=== PATIENT | female | born 1970 | race Caucasian/White ===

== ENCOUNTER 2016-09-25 14:19 | Observation (INO) | payer OTHER ==
--- NOTE | 2016-09-25 14:32 | ERNOTE ---
Abdominal HPI - Narrative Date of Service: 09/25/16 - General Chief Complaint: Abdominal Pain Time Seen by Provider: 09/25/16 14:25 Source: patient Exam Limitations: no limitations - Immun/Allergies/Home Medications Immunizatons: IMMUNIZATION HX Immunizations Up to Date Yes History of Influenza Vaccine Yes Allergies/Adverse Reactions: Allergies camphor [From Biofreeze] Allergy (Verified 09/25/16 14:26) menthol Allergy (Verified 09/25/16 14:26) methyl salicylate [From Icy Hot] Allergy (Verified 09/25/16 14:26) vtids Allergy (Uncoded 09/25/16 14:26) - History of Present Illness Narrative: Pt. comes in as transfer from [facility] with RLQ pain that started this morning. Pt. denies any SOB, CP, but does state taht her pain is accompanied by nausea vomiting and diarrhea since this morning. Pt. has hx of surgery in the past but not her appendix. Pt. has a hx of seizures and denies any problem with anesthesia. Dr Ball and Yan were consulted by [facility] prior to pt. transfer. Review of Systems - Review of Systems Constitutional: Present: no symptoms reported. Absent: recent illness, fever, chills, malaise EYE: Present: no symptoms reported ENT: Present: no symptoms reported Respiratory: Absent: shortness of breath, cough, wheezing Cardiology: Present: no symptoms reported. Absent: chest pain, palpitations, edema Gastrointestinal/Abdominal: Present: nausea, vomiting, diarrhea, abdominal pain Genitourinary: Present: no symptoms reported. Absent: frequency, decreased urinary output Musculoskeletal: Present: no symptoms reported. Absent: back pain, joint pain Skin: Present: no symptoms reported. Absent: rash Neurological: Present: no symptoms reported. Absent: headache, dizziness/light- headedness, numbness, tingling Endocrine: Present: no symptoms reported All Other Systems: All systems neg except as marked - Patient's Past Medical History Patient History - Medical: No pertinent hx - Social History Smoking Status: Never smoker Have you smoked in the past 12 months: No - Immunizations Immunizations Up to Date: Yes History of Influenza Vaccine: Yes Physical Exam - Physical Exam General Appearance: Present: wd/wn, alert, no apparent distress Eye Exam: Normal inspection: bilateral, PERRL: bilateral, EOMI: bilateral Ears, Nose, Throat: Present: normal ENT inspection, normal pharynx Neck: Present: normal inspection, nontender. Absent: lymphadenopathy (R), lymphadenopathy (L) Respiratory: Present: no respiratory distress, normal breath sounds, no accessory muscle use, chest nontender, lungs clear Cardiovascular/Chest: Present: regular rate, rhythm, no murmur, normal peripheral pulses Gastrointestinal/Abdominal: Present: normal bowel sounds, nondistended, soft, tenderness, rebound, McBurney sign, Obturator sign. Absent: Pelaez sign, Psoas sign Extremity Exam: Present: normal inspection, non-tender, no edema, decreased range of motion - R hip active Neurological Exam: Present: alert, oriented, normal mood/affect, no motor/ sensory deficits Skin Exam: Present: normal color, warm/dry. Absent: pallor, skin rash Lymphatic Exam: Present: inguinal node (R) ED Progress - Date and Time Seen: Date and Time: 09/25/16 14:39 Dr Ball in the ER to see the pt. and the OR crew called in for appendectomy at this time. - Results and Orders Patient's Lab Results:: I have reviewed the patient's lab results. Results and Orders: Reveiwed from [facility] mild elevated WBC with bandemia - Vital Signs Patient's Vital Signs:: I have reviewed the patient's vital signs. Vital Signs: Vital Signs 09/25/16 14:20 Temperature 37.1 C Pulse Rate 88 Respiratory 12 Rate Blood Pressure 128/64 O2 Sat by Pulse 96 Oximetry - CT/Ultrasound CT/Ultrasound Narrative: Reveiwed CT scan report from [facility] appendicitis - Progress/Reassessment Chief Complaint: Abdominal Pain Departure - Departure Clinical Impression: Acute appendicitis Qualifiers: Acute appendicitis type: unspecified acute appendicitis type Qualified Code(s) : K35.80 - Unspecified acute appendicitis Disposition: [facility] Condition: Fair Referrals: Yrn Higuera MD [Primary Care Provider] -
--- OUTSIDE RECORDS SUMMARY | 2016-09-25 14:36 | XMS REPORT | Continuity of Care Document ---
:1970 Author Organization [facility] ([facility]) Address [address] [place] [address] Phone [phone] Care Team Providers Name Role Phone Unavailable Primary Care Provider Unavailable Source Comments This disclosure is being made pursuant to the Care Everywhere program, applicable federal and state laws, and may not contain all informaitonavailable regarding this patient.[facility] ([facility]) Active Allergies and Adverse Reactions Not on File Current Medications Not on file Active Problems Not on file Social History Tobacco Use Types Packs/Day Years Used Date Never Assessed Plan of Care Health Maintenance Due Date Last Done Comments Hepatitis B Vaccine (1 of 3 - Primary Series) 1970 Tdap Vaccine 10/29/1979 Lipid Disorder Screening 1986 MMR Vaccine 1986 Td Vaccine 1986 Cervical Cancer Screening 1998 Mammogram 2008 Influenza Vaccine: Seasonal (#1) 02/15/2016 Results from Last 3 Months Not on file
[2016-09-25] MEDS ORDERED: HYDROmorphone HCL 1 MG/ML DISP.SYRIN IV ONE (14:38)
[2016-09-25] MEDS ORDERED: HYDROmorphone HCL 1 MG/ML DISP.SYRIN ONE (14:42)
--- NOTE | 2016-09-25 15:15 | HP ---
Chief Complaint - Chief Complaint Date of Service: 09/25/16 Time of Service: 14:45 Chief Complaint: Abdominal pain, Appendicitis History of Present Illness: 45 y/o female awoke this am with rt sided abdominal pain followed by nausea. Pain has progressed through the day. No change in bowel habits although she has not had a BM in 2 days. No prior hx of similar pain. - Narrative Narrative: Patient has a several yr hx of trigeminal neuralgia for which she takes meds. Hx of hysterectomy several yrs ago. Hx of fairly severe heartburn with spicy food intake. - Patient's Past Medical History Patient History - Medical: No pertinent hx Patient History - Cardiac/Respiratory: No pertinent hx Patient History - Cancer: No Hx of Cancer Patient History - Surgical Procedures: , Hysterectomy Patient History - Other: None - Social History Living Situations: spouse Abuse History: No History of abuse Psych History: Hx of Anxiety Smoking Status: Never smoker Have you smoked in the past 12 months: No - Immunizations Immunizations Up to Date: Yes History of Influenza Vaccine: Yes Review Of Systems (GEN) - Review of Systems EENTM: Present: Other - Long hx of trigeminal neuralgia. Respiratory: Present: No Symptoms Reported Cardiac: Present: No Symptoms Reported Abdominal: Present: Other - see hpi Genitourinary: Present: No Symptoms Reported Musculoskeletal: Present: No Symptoms Reported Neurological: Present: No Symptoms Reported Skin: Present: No Symptoms Reported Endocrine: Present: No Symptoms Reported Immunizations: IMMUNIZATION HX Immunizations Up to Date Yes History of Influenza Vaccine Yes Allergies/Adverse Reactions: Allergies Allergy/AdvReac Type Severity Reaction Status Date / Time camphor [From Biofreeze] Allergy Verified 09/25/16 14:26 menthol Allergy Verified 09/25/16 14:26 methyl salicylate Allergy Verified 09/25/16 14:26 [From [employer] Hot] vtids Allergy Uncoded 09/25/16 14:26 Exam - Exam Vital Signs: Vital Signs - Last Taken Temp 37.1 C 09/25/16 14:20 Pulse 86 09/25/16 14:26 Resp 14 09/25/16 14:26 BP 128/64 09/25/16 14:26 Pulse Ox 96 09/25/16 14:26 Comprehensive Narrative: 09/25/16 15:04 Pleasant female, alert and cooperative. Lungs clear. Heart regular with rate of 96. No murmurs or gallops. Abdomen quiet to auscultation. Tender in RLQ with gaurding and referred rebound. No masses or organomegally. Constitutional: Present: Alert, Oriented x3, Cooperative, Moderate distress, Middle aged, Overweight ENT Exam: Present: hearing grossly normal Neck: Present: non-tender Back Exam: Present: normal inspection Breasts: Present: Exam deferred Respiratory: Present: lungs clear, normal breath sounds, no respiratory distress , No rales, No wheezing Peripheral Pulses: radial (R): 0, radial (L): 0 Abdomen: Present: nondistended, tender, guarding, rebound tenderness /Rectal: Present: Exam deferred Extremity: Present: normal range of motion, normal inspection, no calf tenderness Skin Exam: Present: normal color Lymphatic: Present: no adenopathy Neurologic: Present: no motor/sensory deficits Appearance: Present: appropriate appearance Eye contact: Present: cooperative, good eye contact, normal speech Thoughts: Present: normal thought pattern Diagnostic Studies: WBC 12,500. Chemistries and u/a nl. Blood sugar minimally elevated. CT of abdomen shows acute appendicitis. Assessment/Plan - Narrative Narrative: Patient presents with classic hx and lab and physical exam for appendicitis. CT confirms appendicitis. Plan for appendectomy. I have discussed plan with the patient including the plan for lap appendectomy with the 10 to 15% chance of conversion to open technique. She is aware of risks of bleeding, infection and bowel injury because of prior surgery. She consents to the surgery. Her was in attendance also. - Assessment/Plan (1) Acute appendicitis Problem: Acute Qualifiers: Acute appendicitis type: with localized peritonitis Qualified Code(s): K35.3 - Acute appendicitis with localized peritonitis
[2016-09-25] MEDS ORDERED: CEFOXITIN SODIUM 1 GM in DEXTROSE 5 % IN WATER 100 ML IV ONE ×2 (15:30)
[2016-09-25] MEDS ORDERED: RINGERS SOLUTION,LACTATED 1,000 ML IV ONE (15:45)
--- OUTSIDE RECORDS SUMMARY | 2016-09-25 17:02 | XMS REPORT | Continuity of Care Document ---
:1970 Author Organization [facility] ([facility]) Address [address] [place] [address] Phone [phone] Care Team Providers Name Role Phone Unavailable Primary Care Provider Unavailable Source Comments This disclosure is being made pursuant to the Care Everywhere program, applicable federal and state laws, and may not contain all informaitonavailable regarding this patient.[facility] ([facility]) Active Allergies and Adverse Reactions Not on [...]
[2016-09-25] MEDS ORDERED: NALOXONE HCL 0.4 MG/ML VIAL IV PRN (17:13)
[2016-09-25] MEDS ORDERED: HYDROmorphone HCL 2 MG/ML VIAL IV PRN (17:13)
[2016-09-25] MEDS ORDERED: PROMETHAZINE HCL 12.5 MG in DEXTROSE 5 % IN WATER 50 ML IV PRN ×2 (17:13)
[2016-09-25] MEDS ORDERED: diphenhydrAMINE HCL 50 MG/ML VIAL IV PRN (17:13)
--- NOTE | 2016-09-25 17:35 | OR ---
Operative Report - Dictated Report Narrative: Pre op dx - Acute appendicitis Post op dx - Acute appendicitis and multiple adhesions Operation - Laparoscopic Appendectomy Lysis of adhesions EBL - 15cc Narrative - After induction of general endotracheal anaesthesia Patient was prepped and draped with betadine prep. Timeout was held. A supraumbilical transverse incision was made sand carried down to fascia. The linea alba was elevated between two stay sutures and opened. The peritoneum was grasped and opened. There were multiple adhesions to the peritoneum and these were teased off the peritoneum so a hole was created into free peritonel space. A blunt 12 mm port was placed and the abdomen was insufflated with CO2. A five mm port was placed in the RUQ and the suprapubic area under direct vision. Adhesions were then taken down from the rt lateral lower abdomen and the grosswly inflamed appendix was elevated with a jayson.A window was made along the base of the appendix through the mesoappendix. Using the JO endostapler, the mesoappendix was stapled. This was found to be hemostatic. The endostapler was reintroduced and the base of the appendix was stapled. This was found to be hemostatic. The appendix was placed in an endobag and removed through the umbilical port site. The abdomen was irrigated with copious amts of saline. The ports were removed under direct vision with no bleeding identified.The fascia was closed with O PDS suture and one O silk suture. The skin was closed with subcuticular 4-O vicryl. The patient was stable throughout the operat ion and returned to the recovery room in satisfactory condition. Loi Ball M.D.
[2016-09-25] MEDS ORDERED: RINGERS SOLUTION,LACTATED 1,000 ML IV PRN (17:54)
[2016-09-25] MEDS ORDERED: MORPHINE SULFATE 2 MG/ML DISP.SYRIN IV PRN (18:05)
[2016-09-25] MEDS ORDERED: ONDANSETRON HCL/PF 2 MG/ML VIAL IV PRN (18:07)
[2016-09-25] MEDS ORDERED: NORMAL SALINE 1,000 ML IV PRN (18:08)
[2016-09-25] MEDS ORDERED: carBAMazepine 200 MG TABLET ONE (18:36)
[2016-09-25] MEDS: carBAMazepine 200 MG TABLET PO SCH ×2 (18:39→20:10)
[2016-09-25] MEDS: HYDROcodone/ACETAMINOPHEN 1 EACH TABLET PO PRN (19:08)
[2016-09-25] MEDS: NYSTATIN 15 APPL BTL TP SCH (20:37)
[2016-09-25] MEDS: KETOROLAC TROMETHAMINE 30 MG/ML VIAL IV PRN (20:38)
[2016-09-25] MEDS: GABAPENTIN 300 MG CAPSULE PO SCH (20:38)
[2016-09-25] MEDS ORDERED: lamoTRIgine 100 MG TABLET ONE (21:18)
[2016-09-25] MEDS: clonazePAM 1 MG TABLET PO SCH (21:19)
[2016-09-25] MEDS: lamoTRIgine 100 MG TABLET PO SCH (21:19)
[2016-09-26] MEDS: HYDROcodone/ACETAMINOPHEN 1 EACH TABLET PO PRN ×2 (03:00→08:21)
[2016-09-26] MEDS: KETOROLAC TROMETHAMINE 30 MG/ML VIAL IV PRN ×2 (03:29→12:01)
[2016-09-26] MEDS: GABAPENTIN 300 MG CAPSULE PO SCH ×3 (04:17→14:10)
[2016-09-26] MEDS: NYSTATIN 15 APPL BTL TP SCH (08:20)
[2016-09-26] MEDS: clonazePAM 1 MG TABLET PO SCH (08:20)
[2016-09-26] MEDS: lamoTRIgine 100 MG TABLET PO SCH (08:20)
[2016-09-26] MEDS: carBAMazepine 200 MG TABLET PO SCH ×2 (08:21→13:21)
[2016-09-26] MEDS ORDERED: HYDROcodone/ACETAMINOPHEN 1 EACH TABLET PO PRN ×2 (08:50→08:53)
--- NOTE | 2016-09-26 08:59 | PN ---
Subjective - Date and Time Seen Date: 09/26/16 Time: 08:45 Objective Objective Narrative: Feeling somewhat uncomfortable. Did not sleep well. No chills, no nausea. - Review of Systems EENTM: Reports: No Symptoms Reported Respiratory: Reports: No Symptoms Reported Cardiac: Reports: No Symptoms Reported Abdominal: Reports: Other - Moderate RLQ discomfort Genitourinary Symptoms: Reports: No Symptoms Reported Skin: Reports: No Symptoms Reported Endocrine: Reports: No Symptoms Reported - Vitals Vitals: Last Vital Signs Temp 37.1 C 09/26/16 07:23 Pulse 67 09/26/16 07:23 Resp 18 09/26/16 07:23 BP 97/49 09/26/16 07:25 Pulse Ox 95 09/26/16 07:23 - Exam Exam Narrative: Abdomen not distended. Mild tenderness. Bowel sounds present. Constitutional: Present: Alert, Oriented x3, Cooperative Assessment/Plan Plan Narrative: Ambulate, control pain, discharge this afternoon hopefully. - Problems/Diagnosis (1) Acute appendicitis Problem: Acute Qualifiers: Acute appendicitis type: with localized peritonitis Qualified Code(s): K35.3 - Acute appendicitis with localized peritonitis
[2016-09-26] MEDS ORDERED: lamoTRIgine 100 MG TABLET PO SCH (09:00)
[2016-09-26 12:02] VITALS: BP 87/49
--- NOTE | 2016-09-26 13:32 | DS ---
(1) Acute appendicitis Diagnosis(s): Acute appendicitis, Abdominal adhesions Problem: Acute Qualifiers: Acute appendicitis type: with localized peritonitis Qualified Code(s): K35.3 - Acute appendicitis with localized peritonitis Description of Stay: Patient admitted with signs symptoms and lab consistent with acute appendicitis. She was hydrated, given prophylactic antibiotics and taken to surgery. She underwent a laparoscopic appendectomy and lysis of adhesions. Her post-op course was uneventful and she is discharged home in satisfactory condition. She has been given vicodin for pain. She will take two weeks off of work. Procedures Performed: see notes below List Procedures: Laparoscopic appendectomy and lysis of adhesions. Results and Findings: Acute appendicitis and abdominal adhesions. Discharge Disposition: Home self care Disposition: Home self-care Condition: Good Discharge Activity: Activity as tolerated Discharge Diet: General/regular food Referrals: Yrn Higuera MD [Primary Care Provider] - Complete Home Medications List: Complete Home Medication List: B Complex with Vitamin C [B-Complex with C] 1 each PO DAILY 09/25/16 Biotin 1 mg PO DAILY 09/25/16 Cetirizine HCl [Zyrtec] 10 mg PO DAILY 09/25/16 Cranberry Fruit [Cranberry] 1,200 mg PO DAILY 09/25/16 Gabapentin 300 mg PO QID 09/25/16 Lamotrigine [Lamictal] 100 mg PO BID 09/25/16 Levothyroxine Sodium [Synthroid] 100 mcg PO DAILY 09/25/16 Lutein 20 mg PO DAILY 09/25/16 Towson-3 Fatty Acids [Towson-3] 1,000 mg PO DAILY 09/25/16 carBAMazepine [Tegretol] 200 mg PO QID 09/25/16 clonazePAM [Klonopin] 1 mg PO BID 09/25/16 Gabapentin [Neurontin] 300 mg PO Q6H capsule 09/26/16 HYDROcodone/ACETAMINOPHEN [Tropic 5-325] 2 each PO Q4H PRN #30 tablet 09/26/16 Nystatin [Mycostatin Powder] 1 appl TP BID btl 09/26/16 carBAMazepine [Tegretol] 200 mg PO QID tablet 09/26/16 clonazePAM [Klonopin] 1 mg PO BID tablet 09/26/16 diphenhydrAMINE HCL [Benadryl] 25 mg IV ONCE PRN #0 vial 03/13/17 lamoTRIgine [Lamictal] 100 mg PO DAILY tablet 09/26/16
== END 2016-09-26 14:30 | disposition home or self-care (01) ==
LOC: ER 14:19 → MS 16:57
PROVIDERS: ADMIT Surgery; ATTEND Surgery
PROC: 0DTJ4ZZ Resection of Appendix, Percutaneous Endoscopic Approach (ICD-10-PCS; principal; 2016-09-25 15:45)
DX: K35.3 Acute appendicitis with localized peritonitis (principal)
CPT/HCPCS: 44970; 88304; 96374; 96375; 96376; 99284; G0378

== ENCOUNTER 2016-11-11 10:40 | Emergency (ER) | payer OTHER ==
[2016-11-11 11:11] VITALS: BP 127/89
--- OUTSIDE RECORDS SUMMARY | 2016-11-11 12:26 | XMS REPORT | Continuity of Care Document ---
:1970 Author Organization [facility] ([facility]) Address [address] [place] [address] Phone [phone] Care Team Providers Name Role Phone Unavailable Primary Care Provider Unavailable Source Comments This disclosure is being made pursuant to the Care Everywhere program, applicable federal and state laws, and may not contain all informaitonavailable regarding this patient.[facility] ([facility]) Active Allergies and Adverse Reactions Not [...]
--- NOTE | 2016-11-11 12:27 | ERNOTE ---
Animal Bite ER Date of Service: 11/11/16 Presenting Symptoms: bitten Time Seen by Provider: 11/11/16 12:09 Source: patient Exam Limitations: no limitations Immunizations: IMMUNIZATION HX Immunizations Up to Date Yes History of Influenza Vaccine Yes Allergies/Adverse Reactions: Allergies camphor [From Biofreeze] Allergy (Verified 09/25/16 14:26) menthol Allergy (Verified 09/25/16 14:26) methyl salicylate [From Icy Hot] Allergy (Verified 09/25/16 14:26) vtids Allergy (Uncoded 09/25/16 14:26) Home Medications: HOME MEDICATIONS B-Complex with Vitamin C [B-Complex with C] 1 each PO DAILY 09/25/16 [Last Taken 11/11/16 08:00] Biotin 1 mg PO DAILY 09/25/16 [Last Taken 11/11/16 08:00] Cetirizine HCl [Zyrtec] 10 mg PO DAILY 09/25/16 [Last Taken 09/25/16] Cranberry Fruit [Cranberry] 1,200 mg PO DAILY 09/25/16 [Last Taken 11/11/16 09: 00] Gabapentin 300 mg PO QID 09/25/16 [Last Taken 11/11/16 09:00] Levothyroxine Sodium [Synthroid] 100 mcg PO DAILY 09/25/16 [Last Taken 11/11/16 08:00] Lutein 20 mg PO DAILY 09/25/16 [Last Taken 11/11/16 08:00] Nystatin [Mycostatin Powder] 1 appl TP BID btl 09/26/16 [Last Taken 11/11/16 08 :00] carBAMazepine [Tegretol] 200 mg PO QID tablet 09/26/16 [Last Taken 11/11/16 08: 00] clonazePAM [Klonopin] 1 mg PO BID tablet 09/26/16 [Last Taken 11/11/16 08:00] Clindamycin HCl [Cleocin HCl] 300 mg PO QID 10 Days 11/11/16 [Last Taken Unknown ] Sulfamethoxazole/Trimethoprim [Bactrim Ds] 1 tab PO BID #20 tab 11/11/16 [Last Taken Unknown] lamoTRIgine [Lamictal] 100 mg PO BID 11/11/16 [Last Taken 11/11/16 08:00] Narrative: Patient presents to the ED from the walk in clinic for a cat bite. She was bitten in her left hand last night by a cat her daughter brought home. The cat is still in the home and can be observed. Pain left hand from the cat bite. No fever. No acute focal N/T/W. Tetanus shot is up to date. No other bites. pain dorsum of the hand from the bite. Is allergic to PCN and Cipro. Pain controlled. No other injuries. Onset Time: yesterday Location of Incident: Reports: home Animal Type: Reports: cat Animal Appearance: healthy Animal's Immunization Status: Reports: unknown Observation/Capture: Reports: animal known, animal can be observed for 10 days Context of Attack: Reports: other - feeding animal chicken Severity of injury: Reports: bitten Location of Injury: Reports: upper extremity (L) Associated symptoms: Reports: pain on movement. Denies: numbness distally Prior Treatment: Denies: recently seen Review of Systems - Review of Systems Constitutional: Absent: fever - Patient's Past Medical History Patient History - Medical: Anxiety, Depression, Obesity, Other Patient History - Cardiac/Respiratory: Hyperlipidemia Patient History - Cancer: No Hx of Cancer Patient History - Surgical Procedures: Appendectomy, , Hysterectomy, Other Patient History - Other: None - Social History Living Situations: home Abuse History: No History of abuse Psych History: Hx of Anxiety, Hx of Depression, Current tx/ever been on anti- depressants or anti-anxiety meds - Immunizations Immunizations Up to Date: Yes History of Influenza Vaccine: Yes Physical Exam - Physical Exam General Appearance: Present: alert, no apparent distress Eye Exam: Normal inspection: bilateral Neck: Present: other - trachea midline Respiratory: Present: no respiratory distress Cardiovascular/Chest: Present: regular rate, rhythm, normal peripheral pulses Extremity Exam: Present: other - mild edema and redness dorsum of left hand. 3cm. Puncture wounds noted. No lymphangitis. No drainage. No nec fasc. No apparent joint involvement. No FB noted on exam. No other injuries noted. No evidence of extensor tenosynovitis. No palmar puncture or palmar bite. Neurological Exam: Present: other - No clear acute focla motor or sensory deficits. No clear tendon deficit. Pain does limit exam somewhat. Strong distal cap refill. Skin Exam: Present: other - Puncture from bite dorsum of hand. ED Progress - Results and Orders Patient's Lab Results:: I have reviewed the patient's lab results. - Vital Signs Patient's Vital Signs:: I have reviewed the patient's vital signs. Vital Signs: Vital Signs 11/11/16 10:57 Temperature 36.8 C Pulse Rate 79 Respiratory 16 Rate Blood Pressure 127/89 O2 Sat by Pulse 99 Oximetry - X-Ray X-Ray #1 X-Ray: hand Interpretation: Reviewed by me X-ray Comments: No foreign body. Official report reviewed. - Progress/Reassessment Chief Complaint: Animal Bite Progress Note-Subjective: 11/11/16 13:40 At this time the cat is known and is in the patient's house. Animal control was notified. Animal control will follow-up. She need ABx which will be Rxd. She does not need rabies at this time as the animal is known and can be observed , animal control notified and will assist with observation. Departure Clinical Impression: Cat bite - Departure Disposition: Home self-care Condition: Stable Instructions: Animal Bite Additional Instructions: Because the cat is in your house and can be observed you do not need rabies shots at this time. Animal Control will assist you with the observation of this cat. Nursing has contacted Animal Control, please follow their directions. If for some reason the cat cannot be observed you would need Rabies shots, return here if that occurs. Take antibiotics as directed. Elevate hand. Return for fever, increased pain or swelling, streaking up the arm, fever or if your condition worsens or changes in any way. Prescriptions: Clindamycin HCl [Cleocin HCl] 300 mg PO QID 10 Days Sulfamethoxazole/Trimethoprim [Bactrim Ds] 1 tab PO BID #20 tab
[2016-11-11] MEDS ORDERED: LORazepam 1 MG TABLET ONE (12:58)
[2016-11-11] MEDS ORDERED: SULFAMETHOXAZOLE/TRIMETHOPRIM 1 TAB TABLET ONE (13:28)
[2016-11-11] MEDS ORDERED: CLINDAMYCIN HCL 150 MG CAPSULE ONE (13:28)
[2016-11-11] MEDS: SULFAMETHOXAZOLE/TRIMETHOPRIM 1 TAB TABLET PO ONE (13:29)
[2016-11-11] MEDS: CLINDAMYCIN HCL 150 MG CAPSULE PO ONE (13:30)
== END 2016-11-11 13:59 | disposition home or self-care (01) ==
LOC: ER 10:40
DX: S61.452A Open bite of left hand, initial encounter (principal); W55.01XA Bitten by cat, initial encounter